=== PATIENT | female | born 1995 | race African-American/Black ===

== ENCOUNTER 2023-07-31 10:37 | Outpatient (CLI) | payer OTHER, SELFPAY ==
--- NOTE | ~2023-07-31 | US_ITS ---
EXAMINATION: US breast LT limited HISTORY: Palpable lump in the upper outer quadrant of the left breast, patient is breast-feeding TECHNIQUE: Limited left breast ultrasound performed FINDINGS: There is a 2.9 x 1.5 cm oval, circumscribed, parallel, hypoechoic mass with posterior acous tic shadowing and peripheral vascularity at the 1:00 location, 2 cm from the nipple corresponding to the palpable abnormality of concern. IMPRESSION: Indeterminate left breast mass. Evaluate breast-feeding patient, finding could reflect a galactocele. Correlation with left diagnostic mammogram is recommended. BI-RADS Category 0: Incomplete: Needs additional imaging evaluation. Reviewed, dictated and finalized at location A. L TESTER IMPRESSION: Indeterminate left breast mass. Evaluate breast-feeding patient, finding could reflect a galactocele. Correlation with left diagnostic mammogram is recommende d. BI-RADS Category 0: Incomplete: Needs additional imaging evaluation.
== END 2023-07-31 10:38 | disposition home or self-care (01) ==
LOC: ANHIMG 10:39
PROVIDERS: PCP Nurse Practitioner; Visit Provider Obstetrics & Gynecology
DX: N64.59 Other signs and symptoms in breast (principal); R92.2 Inconclusive mammogram
CPT/HCPCS: 76642

== ENCOUNTER 2023-08-27 10:48 | Outpatient (CLI) | payer OTHER, SELFPAY ==
--- NOTE | ~2023-08-27 | MM_ITS ---
EXAMINATION: MM diagnostic jenifer LT w robert HISTORY: Left breast mass TECHNIQUE: ML, MLO and CC 3-D tomosynthesis images of the left breast were performed and synthetic 2- D images were generated. CAD analysis was submitted and interpreted. COMPARISON: July 31, 2023 limited left breast ultrasound BREAST PARENCHYMAL COMPOSITION: The breasts are extremely dense, which lowers the sensitivity of mamm ography. FINDINGS: There is an oval approximately 2 x 3 cm mass in the anterior aspect of the upper outer quad rant of the left breast. The margins are partially circumscribed. This corresponds to the approximate ly 3 cm left breast mass at 1:00 2 cm from the nipple documented on July 31, 2023 ultrasound exam ination the irregular incompletely circumscribed margins and prominent posterior shadowing as well as vascularity of the lesion on ultrasound imaging are suspicious. Ultrasound-guided biopsy is strongly recommended. No other suspicious mass, architectural distortion, malignant calcification, skin thickening or retra ction is evident. IMPRESSION: 1. Suspicious 3 cm mass of left breast at 1:00 2 cm from nipple 2. Ultrasound-guided biopsy of left 1:00 breast mass is recommended BI-RADS category 4, suspicious findings. Dr. Alvarez telephoned the report and ultrasound-guided biopsy recommendation on August 27, [address] Gates's nurse Lisa. Reviewed, dictated and finalized at location A. IMPRESSION: 1. Suspicious 3 cm mass of left breast at 1:00 2 cm from nipple 2. Ultrasound-guided biopsy of left 1:00 breast mass is recommended BI-RADS category 4, suspicious findings. Dr. Alvarez telephoned the report and ultrasound-guided biopsy recommendation on [address] Gates's nurse Lisa.
== END 2023-08-27 10:49 | disposition home or self-care (01) ==
PROVIDERS: PCP Nurse Practitioner; Visit Provider Obstetrics & Gynecology
DX: N63.20 Unspecified lump in the left breast, unspecified quadrant (principal); R92.8 Other abnormal and inconclusive findings on diagnostic imaging of breast
CPT/HCPCS: 77061; 77065; G0279

== ENCOUNTER 2023-09-30 09:11 | Outpatient (CLI) | payer OTHER, SELFPAY ==
--- NOTE | ~2023-09-30 | MMUS_ITS ---
MM post biopsy invasive LT, US breast biopsy LT w image EXAMINATION: US GUIDED NEEDLE BIOPSY WITH VACUUM ASSISTANCE DATE: 09/30/2023 10:55 CDT INDICATION: Left breast mass seen on recent examination. Ultrasound-guided core biopsy is requested to evaluate for malignancy. TECHNIQUE AND FINDINGS: The risks and potential benefits of the procedure were discussed with the patient, and written inform ed consent was obtained. After sterile preparation of the left breast, 1% lidocaine was utilized for local anesthesia. 1% lidocaine with epinephrine was used for deep anesthesia. A 10G vacuum-assisted biopsy gun needle was advanced through to the outer edge of the region of inter est from a superior approach utilizing sonographic guidance. A total of 4 tissue core samples were o btained through the lesion. An Inrad tissue marker clip was then placed at the biopsy site. Hemostas is was achieved. The patient tolerated procedure well and there was no evidence of immediate complication. The patien t was given verbal instructions partly is from the department. Left breast mammograms to document ti ssue marker clip placement. The tissue samples were submitted to surgical pathology for histologic an alysis. IMPRESSION: 1. Successful ultrasound-guided vacuum-assisted biopsy of left breast mass with tissue marker placem ent. Please refer to pathology report for histologic analysis. Reviewed, dictated and finalized at location B. IMPRESSION: 1. Successful ultrasound-guided vacuum-assisted biopsy of left breast mass wit h tissue marker placement. Please refer to pathology report for histologic anal ysis.
== END 2023-09-30 09:12 | disposition home or self-care (01) ==
PROVIDERS: PCP Nurse Practitioner; Visit Provider Surgery
DX: N63.20 Unspecified lump in the left breast, unspecified quadrant (principal); R92.8 Other abnormal and inconclusive findings on diagnostic imaging of breast
CPT/HCPCS: 19083; 88305; A4648

== ENCOUNTER 2023-10-19 05:50 | Emergency (ER) | payer OTHER, SELFPAY ==
[2023-10-19] VITALS (10 sets, daily range): BP systolic 104–115; BP diastolic 70–85; PULSE 73–94; RESP 14–21; O2SAT 98–100
[2023-10-19 06:50] LABS: Basophils Percent Auto 0.4 % (0.2-1.2); Eosinophils Absolute Auto 0.1 K/mm3 (0-0.3); Eosinophils Percent Auto 1.1 % (0-4.4); Hematocrit 40.4 % (37.0-47.0); Hemoglobin 13.7 g/dL (12.0-15.0); Immature Granulocyte Absolute 0.01 K/mm3 (0.00-0.031); Immature Granulocyte Percent A 0.2 % (0-0.5); Lymphocytes Absolute Auto 1.28 K/mm3 (0.9-3.2); Lymphocytes Percent Auto 24.5 % (18.3-44.2); Mean Corpuscular HGB Conc 33.9 g/dl (32-36); Mean Corpuscular Hemoglobin 30.9 pg (26-34); Mean Platelet Volume 9.2 fl (7.4-10.4); Monocytes Absolute Auto 0.3 K/mm3 (0.1-0.6); Monocytes Percent Auto 4.8 % (2.6-8.5); Neutrophils Absolute Auto 3.6 K/mm3 (1.3-6.7); Platelet Count Result 202 k/mm3 (150-375); Red Blood Count 4.44 M/mm3 (4.2-5.4); Red Cell Distribution Width 13.1 % (11.5-14.5); White Blood Count 5.2 K/mm3 (4.5-10.0)
[2023-10-19 07:01] LABS: Alanine Aminotransferase 16 U/L (6-35); Albumin Level 4.2 g/dL (3.5-5.1); Alkaline Phosphatase 82 U/L (38-126); Anion Gap 10 mmol/L (4-12); Aspartate Amino Transferase 19 U/L (14-36); Bilirubin,Total 0.8 mg/dL (0.2-1.3); Blood Urea Nitrogen 10 mg/dL (7-17); Carbon Dioxide 20 mmol/L (22-30); Chloride 109 mmol/L (98-107); Estimated CRCL calculation 96 ml/min; Estimated Glomerular Filt Rate > 60; Glucose 86 mg/dL (65-110); Potassium 3.9 mmol/L (3.4-5.0); Sodium 139 mmol/L (137-145)
--- NOTE | 2023-10-19 07:23 | ED.ALLEREA ---
HPI - Allergic Reaction General Chief complaint: Allergic Reaction Stated complaint: swelling lips Time Seen by Provider: 10/19/23 06:56 History of Present Illness HPI narrative: 28-year-old female presenting to the emergency department for evaluation for facial swelling. Patient had a recent left breast biopsy and was started on Bactrim, patient states she did have some lip swelling a few days ago but then had recurrence of the lip swelling this morning. Patient denies any other medication changes. Patient denies any previous medication allergies. Patient felt that she was having tongue with pain uvula swelling this morning. Upon arrival emergency department patient does have swelling of her upper and lower lip. Patient is resting comfortably and is in no distress. Related Data Home Medications Medication Instructions Recorded Confirmed control BYMOUTH 08/29/23 Allergies Allergy/AdvReac Type Severity Reaction Status Date / Time sulfamethoxazole Allergy Swelling Verified 10/19/23 09:17 [From of Sulfamethoxazole-Trimethoprim] Lip/Tongue/Throat trimethoprim Allergy Swelling Verified 10/19/23 09:17 [From of Sulfamethoxazole-Trimethoprim] Lip/Tongue/Throat Review of Systems Review of Systems: All systems reviewed & are unremarkable except as noted in HPI and below [facility] Social History Social History (Updated 08/29/23 @ 15:26 by Blanca Montes, [facility]) Smoking status: Never smoker Alcohol intake: never Substance use: never Substance use type: does not use Do You Feel Safe in your Home?: Yes Lack of Transportation: No Lack of Food: Never True Current Housing: I Have Housing Concerned About Future Housing: No Difficulty Paying Gas/Electric Bills: No Difficulty Paying for Meds: No Currently Unemployed: No Education: Bachelor's Degree Difficulty w/ Childcare or Family Care: No Exam Narrative: APPEARANCE: Well appearing, no pain, no distress, well-nourished. HEAD: Upper and lower lip swelling EYES: PERRLA/EOMI, conjunctivae clear. NOSE: Normal no drainage EARS:TMS clear with good light reflex. THROAT: Pharynx clear, no exudate. NECK: Supple. No adenopathy, no masses. RESPIRATORY: Airway patent, respirations nonlabored. Clear to auscultation bilaterally, no rales, rhonchi, wheezing. CARDIOVASCULAR: Regular rate and rhythm without murmurs rubs or gallops. ABDOMINAL: Soft, nontender, nondistended, normal bowel sounds MUSCULOSKELETAL: Moves all extremities. Strength/ROM intact, No edema, No calf tenderness. NEURO: Alert. Cranial nerves II through XII intact. Grossly intact SKIN: Warm, dry. Normal Color. Discharge from biopsy site does not appear purulent but appears to be breast milk. Course Course Emergency Course: Patient was started on prednisone for suspected allergic reaction to Bactrim, Bactrim was stopped and patient was switched to clindamycin. Vital Signs Vital signs: Vital Signs Pulse Rate 86 10/19/23 06:31 Respiratory Rate 15 10/19/23 06:31 Blood Pressure 114/78 10/19/23 06:31 Pulse Oximetry 98 10/19/23 06:31 Pulse Rate 91 10/19/23 09:29 Respiratory Rate 18 10/19/23 09:29 Blood Pressure 115/70 10/19/23 09:29 Pulse Oximetry 100 10/19/23 09:29 MDM - Allergic Reaction MDM Narrative Medical decision making narrative: 28-year-old female present to the emergency department for evaluation of lip swelling as a suspected reaction to Bactrim. Fluid draining from biopsy site appears to be breast milk, wound culture was ordered. Differential Diagnosis Differential diagnosis: Likely anaphylaxis, allergic reaction, angioedema and adverse reaction to drug Lab Data Attestation: I reviewed the patient's lab results. 10/19/23 06:43 10/19/23 06:43 Labs: Lab Results 10/19/23 Range/Units 06:43 WBC 5.2 (4.5-10.0) K/mm3 RBC 4.44 (4.2-5.4) M/mm3 Hgb 13.7 (12.0-15.0) g/dL Hct
[2023-10-19] MEDS: EPINEPHrine HCL INJ 1 MG/ML AMPUL 0.3 MG IM (07:32)
[2023-10-19] MEDS: diphenhydrAMINE HCl INJ 50 MG/ML VIAL 25 MG IV PUSH (07:33)
[2023-10-19] MEDS: FAMOTIDINE 20 MG/2 ML VIAL IV PUSH (07:33)
[2023-10-19] MEDS: methylPREDNISolone SOD SUCC 125 MG VIAL IV PUSH (07:33)
[2023-10-19] MEDS: CLINDAMYCIN HCL 150 MG CAP PO (09:16)
== END 2023-10-19 09:30 | disposition home or self-care (01) ==
PROVIDERS: Emergency Medicine; Emergency Provider Emergency Medicine; PCP Nurse Practitioner
DX: R22.0 Localized swelling, mass and lump, head (principal); T81.41XA Infection following a procedure, superficial incisional surgical site, initial encounter; T36.8X5A Adverse effect of other systemic antibiotics, initial encounter; Y84.8 Other medical procedures as the cause of abnormal reaction of the patient, or of later complication, without mention of misadventure at the time of the procedure
CPT/HCPCS: 36415; 80053; 85025; 87070; 87205; 96372; 96374; 96375; 99284; A9270; J0171; J1200; J2919

== ENCOUNTER 2023-10-20 03:57 | Emergency (ER) | payer OTHER, SELFPAY ==
--- NOTE | ~2023-10-20 | XR_ITS ---
EXAMINATION: XR chest 1V portable DATE: 10/20/2023 04:33 INDICATION: Midline chest pain. TECHNIQUE: A single frontal view of the chest was obtained. COMPARISON: None. FINDINGS: There is no pneumonia, pleural effusion, or pneumothorax. The heart size is normal. IMPRESSION: 1. No acute cardiopulmonary disease. Reviewed, dictated and finalized at location A.
[2023-10-20 04:04] VITALS: O2SAT 100
--- NOTE | 2023-10-20 04:04 | ECG_ITS ---
SEE SCANNED COPY FOR CONFIRMED REPORT MTDD
[2023-10-20 04:08] VITALS: BP 110/88; PULSE 84; RESP 14; TEMP 36.5; O2SAT 100
[2023-10-20] MEDS: BELLADONNA ALK/PHENOB ELIX 10 ML, MAG HYDROX/ALUMINUM HYD/SIMETH 30 ML, LIDOCAINE HCL 2... PO (04:30)
[2023-10-20] MEDS: PANTOPRAZOLE SODIUM IV 40 MG VIAL IV PUSH (04:31)
[2023-10-20] MEDS: FAMOTIDINE 20 MG/2 ML VIAL IV PUSH (04:31)
[2023-10-20 04:32] LABS: Basophils Percent Auto 0.3 % (0.2-1.2); Eosinophils Percent Auto 0.1 % (0-4.4); Hemoglobin 13.8 g/dL (12.0-15.0); Immature Granulocyte Absolute 0.04 K/mm3 (0.00-0.031); Immature Granulocyte Percent A 0.4 % (0-0.5); Lymphocytes Absolute Auto 1.67 K/mm3 (0.9-3.2); Mean Corpuscular HGB Conc 32.9 g/dl (32-36); Mean Corpuscular Hemoglobin 30.3 pg (26-34); Mean Corpuscular Volume 92.3 fl (80-100); Mean Platelet Volume 9.4 fl (7.4-10.4); Monocytes Absolute Auto 0.5 K/mm3 (0.1-0.6); Monocytes Percent Auto 4.6 % (2.6-8.5); Neutrophils Absolute Auto 8.2 K/mm3 (1.3-6.7); Neutrophils Percent Auto 78.6 % (45.5-73.1); Platelet Count Result 256 k/mm3 (150-375); Red Blood Count 4.55 M/mm3 (4.2-5.4); Red Cell Distribution Width 13.2 % (11.5-14.5); White Blood Count 10.5 K/mm3 (4.5-10.0)
[2023-10-20 04:43] LABS: Alanine Aminotransferase 15 U/L (6-35); Albumin Level 4.5 g/dL (3.5-5.1); Alkaline Phosphatase 81 U/L (38-126); Anion Gap 8 mmol/L (4-12); Aspartate Amino Transferase 16 U/L (14-36); Bilirubin,Total 0.6 mg/dL (0.2-1.3); Blood Urea Nitrogen 11 mg/dL (7-17); Calcium 9.7 mg/dL (8.4-10.2); Carbon Dioxide 23 mmol/L (22-30); Chloride 109 mmol/L (98-107); Estimated CRCL calculation 124 ml/min; Estimated Glomerular Filt Rate > 60; Glucose 112 mg/dL (65-110); Lipase 45 U/L (23-300); Potassium 3.7 mmol/L (3.4-5.0); Sodium 140 mmol/L (137-145)
[2023-10-20 04:54] LABS: Troponin I < 0.012 ng/mL (0.000-0.034)
[2023-10-20 05:07] LABS: Appearance Urine Clear (Clear); Bacteria Urine None Seen /hpf; Bilirubin Urine Negative (Negative); Blood Urine Negative (Negative); Color Urine Yellow (Yellow); Glucose Urine UA Negative (Negative); Ketones Urine Negative (Negative); Leukocyte Esterase Ur Trace LEU/UL (Negative); Nitrate Urine Negative (Negative); Non Pathogenic Casts 0-2; Protein Urine Negative (Negative); RBC Urine 0-2 /hpf (0-2); Squamous Epithelial Cell Urine Few /hpf (Few); WBC Urine 0-5 /hpf (0-3); pH Urine 6.5 (5.0-9.0)
--- NOTE | 2023-10-20 05:07 | ED.GENADULT ---
HPI - General Adult General Chief complaint: Chest Pain Stated complaint: chest pain; back pain Time Seen by Provider: 10/20/23 04:03 History of Present Illness HPI narrative: Patient with 8-year-old female who presents emergency department with chief complaint of chest and epigastric discomfort. Patient reports that she was seen in the emergency department after she had allergic reaction to Bactrim and was given epinephrine and given steroids the patient states that she also started an antibiotic and reports that she has a heaviness in her chest and upper abdomen the patient reports she took Tums without relief and reports that she is still feeling uncomfortable. The patient denies shortness of breath denies urticaria Related Data Home Medications Medication Instructions Recorded Confirmed control BYMOUTH 08/29/23 Allergies Allergy/AdvReac Type Severity Reaction Status Date / Time sulfamethoxazole Allergy Swelling Verified 10/20/23 04:07 [From of Sulfamethoxazole-Trimethoprim] Lip/Tongue/Throat trimethoprim Allergy Swelling Verified 10/20/23 04:07 [From of Sulfamethoxazole-Trimethoprim] Lip/Tongue/Throat Review of Systems Review of Systems: A 10 system review of systems was completed on the patient and is negative except for what is stated in the HPI. Nursing and ancillary documentation was reviewed. [facility] Social History Social History Smoking status: Never smoker Alcohol intake: never Substance use: never Substance use type: does not use Do You Feel Safe in your Home?: Yes Lack of Transportation: No Lack of Food: Never True Current Housing: I Have Housing Concerned About Future Housing: No Difficulty Paying Gas/Electric Bills: No Difficulty Paying for Meds: No Currently Unemployed: No Education: Bachelor's Degree Difficulty w/ Childcare or Family Care: No Exam Narrative: GENERAL: Well-appearing, well-nourished, and in no acute distress. HEAD: Normocephalic, atraumatic. EYES: PERRLA and EOMI. ENT: Nares clear, no rhinorrhea or epistaxis. Mucous membranes moist. NECK: Supple. CHEST: Clear to auscultation. No respiratory distress. HEART: Regular rate and rhythm. No murmur heard. Normal peripheral pulses. ABDOMEN: Soft, nontender, nondistended, normal active bowel sounds. EXTREMITIES: Normal range of motion. No edema. SKIN: Warm, dry, no rash. NEURO: No focal deficits. Alert and oriented x3. PSYCH: Normal mood and affect. Course Vital Signs Vital signs: Vital Signs Pulse Oximetry 100 10/20/23 04:04 Oxygen Delivery Room Air 10/20/23 04:04 Temperature 36.5 C 10/20/23 04:08 Pulse Rate 81 10/20/23 05:29 Respiratory Rate 20 10/20/23 05:29 Blood Pressure 129/75 10/20/23 05:29 Pulse Oximetry 100 10/20/23 05:29 Oxygen Delivery Room Air 10/20/23 04:04 Medical Decision Making MDM Narrative Medical decision making narrative: Differential diagnosis includes medication side effect, gastroesophageal reflux disease, gastritis, atypical chest pain EKG showed no acute ischemic changes Laboratory studies showed a normal troponin electrolytes are within normal limits. The patient was given Protonix Pepcid and also was given Zofran. The patient is feeling much better at this time Vital Signs Vital Signs: Vital Signs Pulse Oximetry 100 10/20/23 04:04 Oxygen Delivery Room Air 10/20/23 04:04 Temperature 36.5 C 10/20/23 04:08 Pulse Rate 81 10/20/23 05:29 Respiratory Rate 20 10/20/23 05:29 Blood Pressure 129/75 10/20/23 05:29 Pulse Oximetry 100 10/20/23 05:29 Oxygen Delivery Room Air 10/20/23 04:04 Lab Data 10/20/23 04:27 10/20/23 04:27 Labs: Lab Results 10/20/23 10/20/23 Range/Units 04:27 04:57 WBC 10.5 H (4.5-10.0) K/mm3 RBC 4.55 (4.2-5.4) M/mm3 Hgb 13.8
[2023-10-20 05:19] LABS: Add Urine Microscopic? YES
[2023-10-20 05:29] VITALS: BP 129/75; PULSE 81; RESP 20; O2SAT 100
--- NOTE | 2023-10-20 05:52 | PC.NURSE ---
Patient c/o nausea, ERP notified and placing orders.
[2023-10-20] MEDS: ONDANSETRON INJ 4 MG/2 ML VIAL IV PUSH (05:54)
[2023-10-20 06:38] VITALS: BP 108/58; PULSE 54; RESP 15; TEMP 36.5; O2SAT 100
--- NOTE | 2023-10-20 06:38 | PC.NURSE ---
Patient resting comfortably on stretcher, states she is ready to go home. Patient denies any pain or nausea at this time. ERP notified.
== END 2023-10-20 06:51 | disposition home or self-care (01) ==
PROVIDERS: Emergency Provider Emergency Medicine; PCP Nurse Practitioner
DX: K29.70 Gastritis, unspecified, without bleeding (principal); R07.89 Other chest pain; R94.31 Abnormal electrocardiogram [ECG] [EKG]
CPT/HCPCS: 36415; 71045; 80053; 81001; 81025; 83690; 84484; 85025; 93005; 96374; 96375; 99284; A9270; C9113; J2405

== ENCOUNTER 2023-10-21 08:50 | Emergency (ER) | payer OTHER, SELFPAY ==
--- NOTE | 2023-10-21 08:57 | ED.ALLEREA ---
HPI - Allergic Reaction General Chief complaint: Skin/Abscess/Foreign Body Stated complaint: Allergic Reaction Time Seen by Provider: 10/21/23 09:49 Source: patient and RN notes reviewed Mode of arrival: ambulatory Limitations: no limitations History of Present Illness HPI narrative: 28-year-old female presents with concern for continued allergic reaction. Reports she was taken off Bactrim over the weekend because of the allergic reaction dose 2 days ago. She reports her symptoms are improving but she still continues to have mild hives. She has been seen in the ER several times since this started. She started taking clindamycin when she was seen in the ER because she with continue to have drainage from her breast wound. She reports she is having a small amount of drainage that is not purulent, at her most recent ER visit the provider told her what was coming out of her wound looked like breast milk. She is an 8-month-old baby. She has been taking Benadryl. She denies vomiting, fever, swollen lips, swollen tongue today. Patient has pictures of her hives on her advise my N pictures of her swollen lips that she took yesterday. complaint: allergic reaction Related Data Home Medications Medication Instructions Recorded Confirmed norethindrone (contraceptive) 0.35 mg 10/21/23 10/21/23 mg tablet Allergies Allergy/AdvReac Type Severity Reaction Status Date / Time sulfamethoxazole Allergy Swelling Verified 10/21/23 09:11 [From of Sulfamethoxazole-Trimethoprim] Lip/Tongue/Throat trimethoprim Allergy Swelling Verified 10/21/23 09:11 [From of Sulfamethoxazole-Trimethoprim] Lip/Tongue/Throat Review of Systems Review of Systems: CONSTITUTIONAL: Denies malaise, chills, sweats, or fever. EYES: Denies redness, or discharge. ENT: Denies rhinorrhea, congestion, swollen lips, swollen tongue CARDIOVASCULAR: Denies chest pain, palpitations, or edema. RESPIRATORY: Denies cough or dyspnea. GASTROINTESTINAL: Denies abdominal pain, nausea, vomiting SKIN: Reports hives MUSCULOSKELETAL: Denies joint pain or myalgia. NEUROLOGIC: Denies headache. All systems reviewed & are unremarkable except as noted in HPI and below [facility] Social History Social History Smoking status: Never smoker Alcohol intake: never Substance use: never Substance use type: does not use Do You Feel Safe in your Home?: Yes Lack of Transportation: No Lack of Food: Never True Current Housing: I Have Housing Concerned About Future Housing: No Difficulty Paying Gas/Electric Bills: No Difficulty Paying for Meds: No Currently Unemployed: No Education: Bachelor's Degree Difficulty w/ Childcare or Family Care: No Comments At time of signature, agree with nursing past medical, surgical, social and family history. There is no relevant family history pertinent to the presenting complaint Exam Narrative: GENERAL: Well-appearing, well-nourished, and in no acute distress. HEAD: Normocephalic, atraumatic. EYES: PERRLA, conjunctivae clear, and EOMI. ENT: Mucous membranes moist. Oropharynx without edema, erythema or lesions. NECK: Supple. No lymphadenopathy CHEST: Clear to auscultation. No respiratory distress. HEART: Regular rate and rhythm. SKIN: Warm, dry. No hives visible at this time. Left breast incision site is well approximated without any erythema, tenderness, warmth, drainage, fluctuation NEURO: Alert and oriented x3. PSYCH: Normal mood and affect Course Course Emergency Course: I advised patient that her wound culture that was done in the ER did not grow any bacteria. I feel most likely at this time that her continued hives are still related to the Bactrim which can take several days to clear. I advised her to call her breast surgeon for further instructions on whether not to continue the clindamycin. Her breast no longer looks
[2023-10-21 09:07] VITALS: BP 105/72; PULSE 81; RESP 18; TEMP 36.5; O2SAT 100
== END 2023-10-21 10:13 | disposition home or self-care (01) ==
PROVIDERS: Emergency Provider Nurse Practitioner
DX: L50.9 Urticaria, unspecified (principal)
CPT/HCPCS: 99211; G0463

== ENCOUNTER 2023-10-25 09:13 | Emergency (ER) | payer OTHER, SELFPAY ==
[2023-10-25 09:43] VITALS: BP 119/77; PULSE 89; RESP 16; TEMP 36.2; O2SAT 100
--- NOTE | 2023-10-25 10:24 | ED.SKABFB ---
HPI - Skin/Abscess/Foreign Bdy General Chief complaint: Skin/Abscess/Foreign Body Stated complaint: rash Time Seen by Provider: 10/25/23 10:28 Source: patient Mode of arrival: ambulatory Limitations: no limitations History of Present Illness HPI narrative: 28 y/o female presenting for complaint of rash to body for 1 week after starting Bactrim for abscess to left breast. Since onset she has had complications from the abx; was seen in the emergency room and by breast surgeon, has changed antibiotics from Bactrim to clindamycin, and has completed a course of steroids yesterday. Rash is itchy. States she will develop new hives throughout the night. Denies n/v/d/f/c. Denies lip, tongue, or throat swelling at this time, but she did have lip swelling which prompted her ER visit. Denies shortness of breath or wheezing. Denies changes to soap, detergent, lotion, or any other exposures. No one else in the house or any contacts with similar symptoms. Pt did not complete the clindamycin, but reports abscess is resolved. Related Data Home Medications Medication Instructions Recorded Confirmed norethindrone (contraceptive) 0.35 mg 10/21/23 10/21/23 mg tablet ondansetron 4 mg disintegrating 4 mg PO Q8H nausea and vomiting 10/25/23 tablet Allergies Allergy/AdvReac Type Severity Reaction Status Date / Time sulfamethoxazole Allergy Swelling Verified 10/25/23 10:03 [From of Sulfamethoxazole-Trimethoprim] Lip/Tongue/Throat trimethoprim Allergy Swelling Verified 10/25/23 10:03 [From of Sulfamethoxazole-Trimethoprim] Lip/Tongue/Throat Review of Systems Review of Systems: CONSTITUTIONAL: Denies body aches, fever, chills, or sweats. EYES: Denies visual changes, redness, or discharge. ENT: Denies rhinorrhea, congestion CARDIOVASCULAR: Denies chest pain, palpitations, or edema. RESPIRATORY: Denies cough or dyspnea. GASTROINTESTINAL: Denies abdominal pain, nausea, vomiting, or diarrhea. SKIN: reports hives/rash to body MUSCULOSKELETAL: Denies back pain, joint pain, or myalgia. NEUROLOGIC: Denies headache, numbness, tingling, or weakness. [facility] Social History Social History Smoking status: Never smoker Alcohol intake: never Substance use: never Substance use type: does not use Do You Feel Safe in your Home?: Yes Lack of Transportation: No Lack of Food: Never True Current Housing: I Have Housing Concerned About Future Housing: No Difficulty Paying Gas/Electric Bills: No Difficulty Paying for Meds: No Currently Unemployed: No Education: Bachelor's Degree Difficulty w/ Childcare or Family Care: No Comments At time of signature, I have reviewed and agree with nursing past medical, surgical, social and family history unless otherwise noted. Please see nursing chart for further information. There is no relevant family history pertinent to the presenting complaint Exam Narrative: GENERAL: Well-appearing HEAD: Normocephalic, atraumatic. EYES: conjunctivae clear, and EOMI. ENT: Mucous membranes moist. Oropharynx without edema, erythema or lesions. NECK: Supple. No lymphadenopathy CHEST: Clear to auscultation. HEART: Regular rate and rhythm. SKIN: Warm, dry. Scattered urticaria over body surface; spending face and lower legs, hives are flat and fading NEURO: Alert and oriented x3. Course Course Emergency Course: Patient is aware of diagnosis, understands and agrees to treatment plan. Anticipatory guidance given. Patient agrees to follow-up as directed and is aware of reasons to seek care at the emergency department. Portions of this record may have been created with voice recognition software Level of Care: Express Care Visit Vital Signs Vital signs: Vital Signs Temperature 97.2 F L 10/25/23 09:43 Pulse Rate 89 10/25/23 09:43 Respiratory Rate 16 10/25/23 09:43 Blood Pressure 119/77 10/25/23
== END 2023-10-25 11:20 | disposition home or self-care (01) ==
PROVIDERS: Emergency Provider Nurse Practitioner Family
DX: L50.9 Urticaria, unspecified (principal)
CPT/HCPCS: 99213; G0463